=== PATIENT | female | born 1940 | race Caucasian/White ===

== ENCOUNTER 2025-04-13 11:37 | Emergency (ER) | payer MEDICARE, OTHER, SELFPAY ==
[2025-04-13 11:40] VITALS: BP 187/81; PULSE 79; RESP 16; TEMP 36.4; O2SAT 99; BMI 26.5
[2025-04-13] MEDS: diphenhydrAMINE 25 MG TABLET 50 MG PO (11:47)
--- NOTE | 2025-04-13 11:58 | PC.NURSE ---
Pt denies any difficulty breathing,SOB. Pt has no swelling of lips/mouth. Pt has a small amount of swelling/redness under left eye.
--- NOTE | 2025-04-13 12:32 | ED.SKABFB ---
HPI - Skin/Abscess/Foreign Bdy General Chief complaint: Skin/Abscess/Foreign Body Stated complaint: LT eye bee/wasp sting; feeling weak and shaking Time Seen by Provider: 04/13/25 11:41 History of Present Illness HPI narrative: 84-year-old female on by a wasp while gardening flower in the water brought in for further evaluation as she was having numbness tingling going down the legs and having trouble breathing at 1 point has since subsided. Patient denies chest pain, tongue swelling, lip swelling, difficulty swallowing, speaking, chest pain, shortness of breath at this time. Other than what is stated 14 point review of system is negative. Related Data Previous Rx's ?Medication ?Instructions ?Recorded prednisone 20 mg tablet 20 mg PO DAILY #5 tabs 04/13/25 Allergies Allergy/AdvReac Type Severity Reaction Status Date / Time No Known Drug Allergies Allergy Verified 04/13/25 11:41 Review of Systems Review of Systems ROS Unobtainable: All systems reviewed & are unremarkable except as noted in HPI and below Exam Narrative Exam Narrative: GENERAL: [84] year old patient appears stated age. Well-developed patient, in mild distress. HEAD: Atraumatic. Normocephalic. EYES: Pupils equal round and reactive. Extraocular motions intact. No scleral icterus. No injection or drainage. ENT: Nose without bleeding, purulent drainage. Throat without erythema, tonsillar hypertrophy or exudate. Airway patent. NECK: Trachea midline. Non tender CARDIOVASCULAR: Regular rate and rhythm without murmurs, gallops, or rubs. RESPIRATORY: Clear to auscultation. Breath sounds equal bilaterally. No wheezes, rales, or rhonchi. GASTROINTESTINAL: Abdomen soft, non-tender, nondistended. EXTREMITIES: No edema or joint tenderness. BACK: Nontender without deformity or crepitance. No flank tenderness. NEURO: AOx3. SKIN: No rash or erythema of visible areas Initial Vital Signs Initial Vital Signs: Vital Signs Temperature 97.6 F 04/13/25 11:40 Pulse Rate 79 04/13/25 11:40 Respiratory Rate 16 04/13/25 11:40 Blood Pressure 187/81 H 04/13/25 11:40 Pulse Oximetry 99 04/13/25 11:40 Oxygen Delivery Method Room Air 04/13/25 11:40 Course Orders Ordered: Discontinued Medications Diphenhydramine HCl (Diphenhydramine 25 Mg Tablet) 50 mg PO NOW ONE Stop: 04/13/25 11:45 Last Admin: 04/13/25 11:47 Dose: 50 mg Documented By: CTS Vital Signs Vital signs: Vital Signs - 8 hr 04/13/25 11:40 Temperature 97.6 F Pulse Rate 79 Respiratory Rate 16 Blood Pressure 187/81 H Pulse Oximetry 99 Oxygen Delivery Method Room Air MDM - Skin/Abscess/Foreign Bdy MDM Narrative Medical decision making narrative: Vital signs, nurse triage note, medication list, previous ER visits, and all imaging studies reviewed. Patient given Benadryl and prednisone here and will be DC on prednisone for 5 days. Differential diagnosis allergic reaction, anaphylaxis Discharge Plan Departure Patient Disposition: Home Clinical Impression: Allergic reaction Qualifiers: Encounter type: initial encounter Qualified Code(s): T78.40XA - Allergy, unspecified, initial encounter Instructions: DI for General Allergic Reactions Activity Restrictions/Additional Instructions: Return with new or worsening symptoms. Take your medicines directed. Follow up PCP in 1 week if no improvement in symptoms. Take Benadryl as needed for itch and rash and swelling. Prescriptions: New prednisone 20 mg tablet 20 mg PO DAILY Qty: 5 0RF Referrals: Jamal Flowers MD [Primary Care Provider, Internal Medicine] Stand Alone Forms: Patient Portal/API
[2025-04-13 13:18] VITALS: BP 161/70; PULSE 70; RESP 18; O2SAT 99
== END 2025-04-13 13:18 | disposition home or self-care (01) ==
PROVIDERS: Emergency Provider Family Medicine; PCP Internal Medicine
DX: T78.40XA Allergy, unspecified, initial encounter (principal); W57.XXXA Bitten or stung by nonvenomous insect and other nonvenomous arthropods, initial encounter
CPT/HCPCS: 99283